=== PATIENT | female | born 1970 | race Caucasian/White ===

== ENCOUNTER 2020-09-23 09:02 | Emergency (ER) | payer BC ==
[2020-09-23 09:45] LABS: HEMOGLOBIN 13.8 gm/dl (12.3-15.3); RED BLOOD COUNT 4.5 M/UL (4.00-5.10); WHITE BLOOD COUNT 4.4 K/UL (4.5-11.0)
[2020-09-23 10:31] LABS: BUN/CREATININE RATIO 17 (0-10)
== END 2020-09-23 14:08 | disposition home or self-care (01) ==
LOC: ER1 09:02
PROVIDERS: Emergency Medicine
DX: R51.9 Headache, unspecified (principal); H57.02 Anisocoria; I10 Essential (primary) hypertension; E78.00 Pure hypercholesterolemia, unspecified; Z90.710 Acquired absence of both cervix and uterus; Z20.822 Contact with and (suspected) exposure to COVID-19
CPT/HCPCS: 36415; 70450; 70496; 70498; 80053; 82550; 82553; 83874; 84484; 85025; 93005; 96374; 99284; J2405; J7030; Q9967; U0002

== ENCOUNTER → 2021-09-01 | Outpatient (CLI) | payer BC | LOC: RAD 16:36 | DX: M25.561 Pain in right knee (principal) | CPT/HCPCS: 73562 ==